=== PATIENT | female | born 1980 | race Caucasian/White ===

== ENCOUNTER 2017-06-10 09:28 | Emergency (ER) | payer MEDICAID ==
[~2017-06-10] VITALS: Ht 167.6 cm; Wt 81.6 kg
--- NOTE | 2017-06-10 09:37 | Emergency Room Report ---
History of Present Illness Time Seen by 0933 Presenting Problem in Triage Pt arrived:Walked Presenting Problem:PT ADVISES THIS MORNING AROUND 0415 SHE STARTED HAVING A STABBING PAIN IN HER CHEST WITH SOME TIGHTNESS. 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 N Clinical Suspician of Infection? N Mental Status: 1 - Regular (Normal Baseline) Sepsis Risk:Low Sepsis Risk Have you (or family members/close friends) recently traveled outside the [place]? N If Yes, where/when: Have you had exposure to infectious disease within the past month? N TB? Other? Specify: Patient opened an alejo at work today and a Riskalyze blared loudly and suddenly from it, and she became surprised and anxious, with stabbing pain to midsternal area radiating to back; no n/v, no diaphoresis, no SOB, no calf pain, occurred around four or so this morning and has since resolved; hx of anxiety and sx similar today; has occasional ankle edema for which she takes a diuretic but no new edema. No fever or cough. Only cardiac RF is that she smokes; she denies FH CAD and has no pmh of DM/HTN/hyperlipidemia/CAD. ASA administered on arrival and EKG done and reviewed on arrival to ED. ALLERGIES Coded Allergies: No Known Allergies (06/10/17) Home Medications Reported Medications No Known Home Medications History Medical History General CAD? No Angina: No [place]: No Hypertension? No Hyperlipidemia? No CHF? No DVT? No PE? No COPD? No Asthma? No Anemia? No GERD? No Gastric ulcers? No GI Bleed? No Hernia? No Thyroid Problems? No Hypothyroidism? No CVA? No Seizures? Yes Diabetes? No Renal Insuffiency? No End Stage Renal Disease? No UTI? No Stones? No BPH? No GB Disease: No Nephritic Syndrome? No Asplenia? No Hepatitis? No Sickle Cell Disease? No Arthritis? No Migraines? No Cataracts? No Glaucoma? No MRSA? No HIV? No TB? No Anxiety? Yes Depression? No Cancer? 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 Social History Smoking Hx Smoker: Current Every Day Smoker Tobacco: Yes Type Cigarettes Alcohol Alcohol: No Review of Systems All Other Systems Reviewed and Negative Cardiovascular see HPI Psychiatric/Neurological see HPI Physical Exam Vital Signs Vital Signs Date Time Temp Pulse Resp B/P Pulse O2 O2 Flow FiO2 Ox Delivery Rate 06/10 0930 98.3 85 16 98 General Appearance normal appearance, WD/WN, no apparent distress Eye Exam - bilateral eye normal exam, bilateral eye PERRL, bilateral eye EOMI Neck normal inspection, non-tender, supple, full range of motion Respiratory Status Yes: trachea midline, chest symmetrical, non tender chest. No: respiratory distress, tender on palpation, use of accessory muscles, pain on inspiration, pain on expiration. Lung Sounds bilateral: normal breath sounds, lungs clear. Cardiovascular normal exam, regular rate/rhythm, no peripheral edema, no gallop, no JVD, no murmur, no rub, normal peripheral pulses Gastrointestinal normal bowel sounds, normal exam, non tender, no organomegaly, no pulsatile mass, no guarding, rebound Extremities non-tender, normal range of motion, normal inspection, no calf tenderness, no pedal edema Strength 5 Upper Ext (L), 5 Upper Ext (R), 5 Lower Ext (L), 5 Lower Ext (R) Neurologic alert, normal exam, no motor/sensory deficits, oriented x 3 Glascow Coma Scale Glascow Coma Scale Response Value EYE response: 4 Spontaneously 4 MOTOR response: 6 OBEYS 6 VERBAL response: 5 Oriented & Converses 5 Total 15 Skin intact, normal color, warm/dry, no rash cons.w/shingles Lymphatic no adenopathy Medical Decision Making LABS/Meds/Orders Pt receiving controlled substance in ED? No Results/Orders Laboratory Tests 06/10/17 0933: Sodium 137, Potassium 3.5, Chloride 101, Carbon Dioxide 27, BUN 12, Creatinine 0.9, Estimated Creat Clear 109, Estimated GFR (MDRD) 70, Glucose 103, Calcium 9.1, Total Bilirubin 0.2, AST 16, ALT 20, Alkaline Phosphatase 110, Creatine Kinase 94, CK-MB (CK-2) Rel Index 0.5, CK and CKMB Interp < 0.5, Troponin I < 0.02, Total Protein 8.1, Albumin 4.1, Globulin 4.0 H, Albumin/Globulin Ratio 1.0 L, WBC 9.7, RBC 4.85, Hgb 15.0, Hct 44.9, MCV 92.5, RDW 12.0, Plt Count 411 , MPV 7.2 L, Gran % 64.8, Gran # 6.3, Lymphocytes % 30.2, Monocytes % 3.5, Eosinophils % 0.9, Basophils % 0.5, Lymphocytes # 2.9, Monocytes # 0.3, Eosinophils # 0.1, Basophils # 0.0, PUBS MCHC 33.3, MCH 30.8 Current Medication Orders Sig/Abram Start time Last Medication Dose Route Stop Time Status Admin Aspirin 324 MG ONCE ONE 06/10 945 DC 06/10 PO 06/1034 Sodium Chloride 10 ML PRN PRN 06/10 945 AC IV 06/11 931 Aspirin 0 .STK-MED ONE 06/10 933 DC .ROUTE Orders Procedure Date/time Status ELECTROCARDIOGRAM REQUEST 06/10 932 Active CHEST(2 VIEWS-NOT PORTABLE) 06/10 932 Active IV SALINE LOCK 06/10 932 Active VP CARDIOVASCULAR SERVICE LINE 06/10 932 Active CBC WITH AUTO DIFF 06/10 932 Complete CARDIAC ENZYMES 06/10 932 Complete CHEM 12 PROFILE 06/10 932 Complete 12 LEAD EKG-[facility] (INITIAL) 06/10 930 Active CM/EKG CM/EKG EKG rate, NSR, rhythm, no evid. of ischemic chgs, no ectopy, normal QRS, normal PA, normal EKG (NSR 80; ) XRAY/CT/US XRAY/CT/US XRAY chest XR interpretation by reviewed by me Xray Results normal/NAD, no infiltrates, normal heart size, normal lung inflation luis (nl mediastinum) Departure Departure Time of Disposition 1021 Disposition DC Home or Self Care(routine) Clinical Impression Primary Impression: Atypical chest pain Secondary Impressions: History of anxiety Condition STABLE Referrals NO REFERRAL (PCP) Patient Instructions DI for Atypical Chest Pain Additional Instructions See family doctor of choice, one week, see list provided. Discharge Counseling Counseled pt/family regarding diagnosis, test results, home care, follow up needs Prescriptions Current Visit Scripts No Known Home Medications ED Critical Care Critical Care No at 1023
--- NOTE | 2017-06-10 09:37 | Emergency Room Report ---
History of Present Illness Time Seen by 0933 Presenting Problem in Triage Pt arrived:Walked Presenting Problem:PT ADVISES THIS MORNING AROUND 0415 SHE STARTED HAVING A STABBING PAIN IN HER CHEST WITH SOME TIGHTNESS. 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 N Clinical Suspician of Infection? N Mental Status: 1 - Regular (Normal Baseline) Sepsis Risk:Low Sepsis Risk Have you (or family members/close friends) recently traveled outside the [place]? N If Yes, where/when: Have you had exposure to infectious disease within the past month? N TB? Other? Specify: Patient opened an alejo at work today and a Lydia blared loudly and suddenly from it, and she became surprised and anxious, with stabbing pain to midsternal area radiating to back; no n/v, no diaphoresis, no SOB, no calf pain, occurred around four or so this morning and has since resolved; hx of anxiety and sx similar today; has occasional ankle edema for which she takes a diuretic but no new edema. No fever or cough. Only cardiac RF is that she smokes; she denies FH CAD and has no pmh of DM/HTN/hyperlipidemia/CAD. ASA administered on arrival and EKG done and reviewed on arrival to ED. ALLERGIES Coded Allergies: No Known Allergies (06/10/17) Home Medications Reported Medications No Known Home Medications History Medical History General CAD? No Angina: No [place]: No Hypertension? No Hyperlipidemia? No CHF? No DVT? No PE? No COPD? No Asthma? No Anemia? No GERD? No Gastric ulcers? No GI Bleed? No Hernia? No Thyroid Problems? No Hypothyroidism? No CVA? No Seizures? Yes Diabetes? No Renal Insuffiency? No End Stage Renal Disease? No UTI? No Stones? No BPH? No GB Disease: No Nephritic Syndrome? No Asplenia? No Hepatitis? No Sickle Cell Disease? No Arthritis? No Migraines? No Cataracts? No Glaucoma? No MRSA? No HIV? No TB? No Anxiety? Yes Depression? No Cancer? 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 Social History Smoking Hx Smoker: Current Every Day Smoker Tobacco: Yes Type Cigarettes Alcohol Alcohol: No Review of Systems All Other Systems Reviewed and Negative Cardiovascular see HPI Psychiatric/Neurological see HPI Physical Exam Vital Signs Vital Signs Date Time Temp Pulse Resp B/P Pulse O2 O2 Flow FiO2 Ox Delivery Rate 06/10 0930 98.3 85 16 98 General Appearance normal appearance, WD/WN, no apparent distress Eye Exam - bilateral eye normal exam, bilateral eye PERRL, bilateral eye EOMI Neck normal inspection, non-tender, supple, full range of motion Respiratory Status Yes: trachea midline, chest symmetrical, non tender chest. No: respiratory distress, tender on palpation, use of accessory muscles, pain on inspiration, pain on expiration. Lung Sounds bilateral: normal breath sounds, lungs clear. Cardiovascular normal exam, regular rate/rhythm, no peripheral edema, no gallop, no JVD, no murmur, no rub, normal peripheral pulses Gastrointestinal normal bowel sounds, normal exam, non tender, no organomegaly, no pulsatile mass, no guarding, rebound Extremities non-tender, normal range of motion, normal inspection, no calf tenderness, no pedal edema Strength 5 Upper Ext (L), 5 Upper Ext (R), 5 Lower Ext (L), 5 Lower Ext (R) Neurologic alert, normal exam, no motor/sensory deficits, oriented x 3 Glascow Coma Scale Glascow Coma Scale Response Value EYE response: 4 Spontaneously 4 MOTOR response: 6 OBEYS 6 VERBAL response: 5 Oriented & Converses 5 Total 15 Skin intact, normal color, warm/dry, no rash cons.w/shingles Lymphatic no adenopathy Medical Decision Making LABS/Meds/Orders Pt receiving controlled substance in ED? No Results/Orders Laboratory Tests 06/10/17 0933: Sodium 137, Potassium 3.5, Chloride 101, Carbon Dioxide 27, BUN 12, Creatinine 0.9, Estimated Creat Clear 109, Estimated GFR (MDRD) 70, Glucose 103, Calcium 9.1, Total Bilirubin 0.2, AST 16, ALT 20, Alkaline Phosphatase 110, Creatine Kinase 94, CK-MB (CK-2) Rel Index 0.5, CK and CKMB Interp < 0.5, Troponin I < 0.02, Total Protein 8.1, Albumin 4.1, Globulin 4.0 H, Albumin/Globulin Ratio 1.0 L, WBC 9.7, RBC 4.85, Hgb 15.0, Hct 44.9, MCV 92.5, RDW 12.0, Plt Count 411 , MPV 7.2 L, Gran % 64.8, Gran # 6.3, Lymphocytes % 30.2, Monocytes % 3.5, Eosinophils % 0.9, Basophils % 0.5, Lymphocytes # 2.9, Monocytes # 0.3, Eosinophils # 0.1, Basophils # 0.0, PUBS MCHC 33.3, MCH 30.8 Current Medication Orders Sig/Abram Start time Last Medication Dose Route Stop Time Status Admin Aspirin 324 MG ONCE ONE 06/10 945 DC 06/10 PO 06/1034 Sodium Chloride 10 ML PRN PRN 06/10 945 AC IV 06/11 931 Aspirin 0 .STK-MED ONE 06/10 933 DC .ROUTE Orders Procedure Date/time Status ELECTROCARDIOGRAM REQUEST 06/10 932 Active CHEST(2 VIEWS-NOT PORTABLE) 06/10 932 Active IV SALINE LOCK 06/10 932 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 of ischemic chgs, no ectopy, normal QRS, normal [place], normal EKG (NSR 80; ) XRAY/CT/US XRAY/CT/US XRAY chest XR interpretation by reviewed by me Xray Results normal/NAD, no infiltrates, normal heart size, normal lung inflation luis (nl mediastinum) Departure Departure Time of Disposition 1021 Disposition DC Home or Self Care(routine) Clinical Impression Primary Impression: Atypical chest pain Secondary Impressions: History of anxiety Condition STABLE Referrals NO REFERRAL (PCP) Patient Instructions DI for Atypical Chest Pain Additional Instructions See family doctor of choice, one week, see list provided. Discharge Counseling Counseled pt/family regarding diagnosis, test results, home care, follow up needs Prescriptions Current Visit Scripts No Known Home Medications ED Critical Care Critical Care No at 1023
[2017-06-10 09:47] LABS: LYMPH # 2.9 K/mm3 (0.7-4.5); LYMPH % 30.2 % (10-50.0)
[2017-06-10 10:13] LABS: BUN 12 mg/dL (7-18); GFR (ESTIMATED) 70 ML/MIN (59-)
--- OUTSIDE RECORDS SUMMARY | 2017-06-10 10:15 | External Medical Summary Rpt ---
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 Role Phone [facility], Unavailable Unavailable [facility] Unavailable Unavailable PARTNERSHIP I #, [facility] I # [facility] # Unavailable Unavailable [id number], [facility] # [id number] Purpose Continuity of Care Document - 12-31-2009 through 2016 Problems Code Diagnosis DOS Provider Status F44.5 Conversion disorder with seizures or convulsions Medications Na ND Rx Da Fi Fi Am Da Di Ph RX Ph St me C No te ll ll ou ys ag ar # ys at rm s nt no ma ic us Or Da si cy ia de te s n re d WA 37 10 10 5 60 30 BE 10 BE Ac IL 00 -1 -1 .0 RI 36 AL ti OS 00 3- 3- 00 NG 41 L ve EC 45 20 20 ER 9 50 11 [address] Y C UG 20 .6 CE NT MG ER TA BL ET WA 68 10 10 2 30 8 BE 10 BE Ac OM 38 -1 -1 .0 RI 36 AL ti ET 20 3- 3- 00 NG 42 L ve FLORES 04 20 20 ER 0 ZI 11 11 [address] Y UG 25 CE MG NT ER TA BL ET TO 68 10 10 12 60 30 BE 10 BE Ac PI 46 -1 -1 .0 RI 36 AL ti RA 20 3- 3- 00 NG 42 L ve MA 15 20 20 ER 1 TE 31 [address] Y 50 UG MG CE NT TA ER BL ET DI 00 10 10 0 30 4 BE 10 BE Ac PH 37 -1 -1 .0 RI 36 AL ti EN 80 3- 3- 00 NG 42 L ve OX 41 20 20 ER 2 YL 51 11 [address] Y E- UG AT RO CE P NT 2. ER 5- 0. 02 5 CI 65 04 09 3 15 30 BE 10 GR Ac TA 16 -1 -1 .0 RI 21 OS ti LO 20 5- 6- 00 NG 36 S ve WA 05 20 20 ER 9 LA AM 41 [address] Y HB UG R 40 CE NT MG ER TA BL ET SE 00 04 09 3 30 30 BE 10 GR Ac RO 31 -1 -1 .0 RI 21 OS ti QU 00 5- 6- 00 NG 37 S ve EL 27 20 20 ER 0 LA 11 11 [address] Y 0 UG MG CE TA NT BL ER ET TO 68 04 09 3 60 30 BE 10 GR Ac PI 46 -1 -0 .0 RI 21 OS ti RA 20 5- 6- 00 NG 36 S ve MA 15 20 20 ER 8 LA TE 31 [address] Y 50 UG MG CE NT TA ER BL ET TO 68 04 05 3 60 30 BE 10 GR Ac PI 46 -1 -0 .0 RI 21 OS ti RA 20 5- 9- 00 NG 36 S ve MA 15 20 20 ER 8 LA TE 31 [address] Y 50 UG MG CE NT TA ER BL ET CI 65 04 05 3 15 30 BE 10 GR Ac TA 16 -1 -0 .0 RI 21 OS ti LO 20 5- 9- 00 NG 36 S ve WA 05 20 20 ER 9 LA AM 41 [address] Y HB UG R 40 CE NT MG ER TA BL ET SE 00 04 05 3 30 30 BE 10 GR Ac RO 31 -1 -0 .0 RI 21 OS ti QU 00 5- 9- 00 NG 37 S ve EL 27 20 20 ER 0 LA 11 11 [address] Y 0 UG MG CE TA NT BL ER ET TO 68 02 04 1 60 30 BE 10 GR Ac PI 46 -1 -0 .0 RI 14 OS ti RA 20 8- 6- 00 NG 70 S ve MA 15 20 20 ER 1 LA TE 31 [address] Y 50 UG MG CE NT TA ER BL ET CI 65 02 04 1 15 30 BE 10 GR Ac TA 16 -1 -0 .0 RI 14 OS ti LO 20 8- 6- 00 NG 70 S ve WA 05 20 20 ER 2 LA AM 41 [address] Y HB UG R 40 CE NT MG ER TA BL ET SE 00 02 04 1 30 30 BE 10 GR Ac RO 31 -1 -0 .0 RI 14 OS ti QU 00 8- 6- 00 NG 70 S ve EL 27 20 20 ER 3 LA 11 11 [address] Y 0 UG MG CE TA NT BL ER ET SE 00 02 03 1 30 30 BE 10 GR Ac RO 31 -1 -0 .0 RI 14 OS ti QU 00 8- 4- 00 NG 70 S ve EL 27 20 20 ER 3 LA 11 11 [address] Y 0 UG MG CE TA NT BL ER ET CI 65 02 03 1 15 30 BE 10 GR Ac TA 16 -1 -0 .0 RI 14 OS ti LO 20 8- 4- 00 NG 70 S ve WA 05 20 20 ER 2 LA AM 41 [address] Y HB UG R 40 CE NT MG ER TA BL ET TO 68 02 03 1 60 30 BE 10 GR Ac PI 46 -1 -0 .0 RI 14 OS ti RA 20 8- 4- 00 NG 70 S ve MA 15 20 20 ER 1 LA TE 31 [address] Y 50 UG MG CE NT TA ER BL ET TO 68 09 01 5 12 30 BE 99 BE Ac PI 46 -1 -3 0. RI 66 AL ti RA 20 0- 1- 00 NG 03 L ve MA 10 20 20 0 ER TE 81 [address] Y 25 UG MG CE NT TA ER BL ET SE 00 09 01 5 30 30 BE 99 BE Ac RO 31 -1 -3 .0 RI 66 AL ti QU 00 0- 1- 00 NG 04 L ve EL 28 20 20 ER 23 10 [address] Y UG 20 0 CE MG NT ER TA BL ET CI 65 09 01 5 15 30 BE 99 BE Ac TA 16 -1 -3 .0 RI 66 AL ti LO 20 0- 1- 00 NG 05 L ve WA 05 20 20 ER AM [address] Y HB UG R 40 CE NT MG ER TA BL ET TO 68 09 01 5 12 30 BE 99 BE Ac PI 46 -1 -0 0. RI 66 AL ti RA 20 0- 3- 00 NG 03 L ve MA 10 20 20 0 ER TE 81 [address] Y 25 UG MG CE NT TA ER BL ET SE 00 09 01 5 30 30 BE 99 BE Ac RO 31 -1 -0 .0 RI 66 AL ti QU 00 0- 3- 00 NG 04 L ve EL 28 20 20 ER 23 10 [address] Y UG 20 0 CE MG NT ER TA BL ET CI 65 09 01 5 15 30 BE 99 BE Ac TA 16 -1 -0 .0 RI 66 AL ti LO 20 0- 3- 00 NG 05 L ve WA 05 20 20 ER AM [address] Y HB UG R 40 CE NT MG ER TA BL ET TO 68 09 12 5 12 30 BE 99 BE Ac PI 46 -1 -0 0. RI 66 AL ti RA 20 0- 6- 00 NG 03 L ve MA 10 20 20 0 ER TE 81 [address] Y 25 UG MG CE NT TA ER BL ET SE 00 09 12 5 30 30 BE 99 BE Ac RO 31 -1 -0 .0 RI 66 AL ti QU 00 0- 6- 00 NG 04 L ve EL 28 20 20 ER 23 10 [address] Y UG 20 0 CE MG NT ER TA BL ET CI 65 09 12 5 15 30 BE 99 BE Ac TA 16 -1 -0 .0 RI 66 AL ti LO 20 0- 6- 00 NG 05 L ve WA 05 20 20 ER AM [address] Y HB UG R 40 CE NT MG ER TA BL ET TO 68 09 11 5 12 30 BE 99 BE Ac PI 46 -1 -0 0. RI 66 AL ti RA 20 0- 8- 00 NG 03 L ve MA 10 20 20 0 ER TE 81 [address] Y 25 UG MG CE NT TA ER BL ET SE 00 09 11 5 30 30 BE 99 BE Ac RO 31 -1 -0 .0 RI 66 AL ti QU 00 0- 8- 00 NG 04 L ve EL 28 20 20 ER 23 10 [address] Y UG 20 0 CE MG NT ER TA BL ET CI 65 09 11 5 15 30 BE 99 BE Ac TA 16 -1 -0 .0 RI 66 AL ti LO 20 0- 8- 00 NG 05 L ve WA 05 20 20 ER AM [address] Y HB UG R 40 CE NT MG ER TA BL ET TO 68 09 10 5 12 30 BE 99 BE Ac PI 46 -1 -1 0. RI 66 AL ti RA 20 0- 1- 00 NG 03 L ve MA 10 20 20 0 ER TE 81 [address] Y 25 UG MG CE NT TA ER BL ET SE 00 09 10 5 30 30 BE 99 BE Ac RO 31 -1 -1 .0 RI 66 AL ti QU 00 0- 1- 00 NG 04 L ve EL 28 20 20 ER 23 10 [address] Y UG 20 0 CE MG NT ER TA BL ET CI 65 09 10 5 15 30 BE 99 BE Ac TA 16 -1 -1 .0 RI 66 AL ti LO 20 0- 1- 00 NG 05 L ve WA 05 20 20 ER AM [address] Y HB UG R 40 CE NT MG ER TA BL ET SE 00 09 09 5 30 30 BE 99 BE Ac RO 31 -1 -1 .0 RI 66 AL ti QU 00 0- 3- 00 NG 04 L ve EL 28 20 20 ER 23 10 [address] Y UG 20 0 CE MG NT ER TA BL ET TO 68 09 09 5 12 30 BE 99 BE Ac PI 46 -1 -1 0. RI 66 AL ti RA 20 0- 0- 00 NG 03 L ve MA 10 20 20 0 ER TE [address] Y 25 UG MG CE NT TA ER BL ET CI 65 09 09 5 15 30 BE 99 BE Ac TA 16 -1 -1 .0 RI 66 AL ti LO 20 0- 0- 00 NG 05 L ve WA 05 20 20 ER AM [address] Y HB UG R 40 CE NT MG ER TA BL ET SE 00 08 08 0 15 15 KR 66 LA Ac RO 31 -2 -2 .0 OG 71 RU ti QU 00 6- 7- 00 ER 40 E ve EL 28 20 20 8 JR 26 10 10 LI . XR 0 VA GE TE NT 20 D RY 0 PA C MG RT NE TA RS BL HI ET P I # TO 00 08 08 0 60 30 KR 66 LA Ac PI 09 -2 -2 .0 OG 71 RU ti RA 30 6- 7- 00 ER 40 E ve MA 15 20 20 9 JR TE 50 10 10 LI . 6 VA GE 25 TE NT D RY MG PA C RT TA NE BL RS ET HI P I # CI 55 08 08 0 15 15 KR 66 LA Ac TA 11 -2 -2 .0 OG 71 RU ti LO 10 6- 7- 00 ER 41 E ve WA 34 20 20 0 JR AM 30 10 10 LI . 5 VA GE HB TE NT R D RY 20 PA C RT MG NE RS TA HI BL P ET I # CL 00 07 07 1 90 30 KR 42 TA Ac ON -1 .0 OG 08 NG ti AZ 30 2- 2- 00 ER 61 VA ve EP 83 20 20 1 LD AM 20 10 10 PH 5 AR IV 0. MA 5 CY TH MG # OR TA 14 BL 36 ET 4 DI 00 03 03 0 90 30 KR 42 TA Ac AZ 37 -3 -3 .0 OG 06 NG ti EP 80 0- 0- 00 ER 51 VA ve AM 34 20 20 8 LD 5 50 10 10 PH 5 AR IV MG MA CY TH TA # OR BL ET 14 36 4 DI 00 03 03 0 90 30 BE 97 TA Ac AZ 59 -0 -0 .0 RI 85 NG ti EP 15 3- 3- 00 NG 79 VA ve AM 61 20 20 ER LD [address] IV MG UG TH TA CE OR BL NT ET ER
--- OUTSIDE RECORDS SUMMARY | 2017-06-10 10:15 | External Medical Summary Rpt ---
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, Unavailable Unavailable [facility] Unavailable Unavailable PARTNERSHIP I #, [facility] I # [facility] # Unavailable Unavailable [id number], [facility] # [id number] Purpose Continuity of Care Document - 12-31-2009 [...] ia de te s n re d OK 37 10 10 5 60 30 BE 10 BE Ac IL 00 -1 -1 .0 RI 36 AL ti OS 00 3- 3- 00 NG 41 L ve EC 45 20 20 ER 9 50 11 [address] Y C UG 20 .6 CE NT MG ER TA BL ET OK 68 10 10 2 30 8 BE [...] 5- 6- 00 NG 36 S ve OK 05 20 20 ER 9 LA AM [...] 5- 9- 00 NG 36 S ve OK 05 20 20 ER 9 LA AM [...] 8- 6- 00 NG 70 S ve OK 05 20 20 ER 2 LA AM [...] 8- 4- 00 NG 70 S ve OK 05 20 20 ER 2 LA AM [...] 0- 1- 00 NG 05 L ve OK 05 20 20 ER AM 41 10 [...] 0- 3- 00 NG 05 L ve OK 05 20 20 ER AM 41 10 [...] 0- 6- 00 NG 05 L ve OK 05 20 20 ER AM 41 10 [...] 0- 8- 00 NG 05 L ve OK 05 20 20 ER AM 41 10 [...] 0- 1- 00 NG 05 L ve OK 05 20 20 ER AM 41 10 [...] 0- 0- 00 NG 05 L ve OK 05 20 20 ER AM 41 10 [...] 26 10 10 LI . XR 0 PA GE TE NT 20 D RY 0 PA C MG RT NE TA RS BL HI ET P I # TO 00 08 08 0 60 30 KR 66 LA Ac PI 09 -2 -2 .0 OG 71 RU ti RA 30 6- 7- 00 ER 40 E ve MA 15 20 20 9 JR TE 50 10 10 LI . 6 PA GE 25 TE NT D RY MG PA C RT TA NE BL RS ET HI P I # CI 55 08 08 0 15 15 KR 66 LA Ac TA 11 -2 -2 .0 OG 71 RU ti LO 10 6- 7- 00 ER 41 E ve OK 34 20 20 0 JR AM 30 10 10 LI . 5 PA GE HB TE NT R D RY [...]
--- OUTSIDE RECORDS SUMMARY | 2017-06-10 10:17 | External Medical Summary Rpt ---
Demographics Preferred Language Kazakh Marital Status Unknown Jain Affiliation Unknown Race Unknown Ethnic Group Unknown Author Author , LUKE BUTLER Address Unknown Phone [email or web address] Care Team Providers Care Matrix Repairer Name Role Phone [facility], Unavailable Unavailable [facility] Unavailable Unavailable PARTNERSHIP I #, [facility] I # [facility] # Unavailable Unavailable [id number], [facility] # [id number] Purpose Continuity of Care Document - 12-31-2009 through 2016 Medications Na ND Rx Da Fi Fi Am Da Di Ph RX Ph St me C No te ll ll ou ys ag ar # ys at rm s nt no ma ic us Or Da si cy ia de te s n re d IL 37 10 10 5 60 30 BE 10 BE Ac IL 00 -1 -1 .0 RI 36 AL ti OS 00 3- 3- 00 NG 41 L ve EC 45 20 20 ER 9 50 11 [address] Y C UG 20 .6 CE NT MG ER TA BL ET IL 68 10 10 2 30 8 BE [...] 5- 6- 00 NG 36 S ve IL 05 20 20 ER 9 LA AM [...] 5- 9- 00 NG 36 S ve IL 05 20 20 ER 9 LA AM [...] 8- 6- 00 NG 70 S ve IL 05 20 20 ER 2 LA AM [...] NT BL ER ET TO 68 02 03 1 60 30 BE 10 GR Ac PI 46 -1 -0 .0 RI 14 OS ti RA 20 8- 4- 00 NG 70 S ve MA 15 20 20 ER 1 LA TE 31 [address] Y 50 UG MG CE NT TA ER BL ET CI 65 02 03 1 15 30 BE 10 GR Ac TA 16 -1 -0 .0 RI 14 OS ti LO 20 8- 4- 00 NG 70 S ve IL 05 20 20 ER 2 LA AM 41 [address] Y HB UG R 40 CE NT MG ER TA BL ET SE 00 02 03 1 30 30 BE 10 GR Ac RO 31 -1 -0 .0 RI 14 OS ti QU 00 8- 4- 00 NG 70 S ve EL 27 20 20 ER 3 LA 11 11 [address] Y 0 UG MG CE TA NT BL ER ET TO 68 09 01 5 12 [...] 0- 1- 00 NG 05 L ve IL 05 20 20 ER AM 41 10 [...] 0- 3- 00 NG 05 L ve IL 05 20 20 ER AM 41 10 [...] 0- 6- 00 NG 05 L ve IL 05 20 20 ER AM 41 10 [...] 0- 8- 00 NG 05 L ve IL 05 20 20 ER AM 41 10 [...] 0- 1- 00 NG 05 L ve IL 05 20 20 ER AM 41 10 [...] 0- 0- 00 NG 05 L ve IL 05 20 20 ER AM 41 10 [...] 26 10 10 LI . XR 0 [place] GE TE NT 20 D RY 0 PA C MG RT NE TA RS BL HI ET P I # TO 00 08 08 0 60 30 KR 66 LA Ac PI 09 -2 -2 .0 OG 71 RU ti RA 30 6- 7- 00 ER 40 E ve MA 15 20 20 9 JR TE 50 10 10 LI . 6 [place] GE 25 TE NT D RY MG PA C RT TA NE BL RS ET HI P I # CI 55 08 08 0 15 15 KR 66 LA Ac TA 11 -2 -2 .0 OG 71 RU ti LO 10 6- 7- 00 ER 41 E ve IL 34 20 20 0 JR AM 30 10 10 LI . 5 [place] GE HB TE NT R D RY 20 PA C RT MG NE RS TA HI BL P ET I # CL 00 07 07 1 90 30 KR 42 TA Ac ON 09 -1 -1 .0 OG 08 NG ti AZ [...]
--- OUTSIDE RECORDS SUMMARY | 2017-06-10 10:17 | External Medical Summary Rpt ---
Demographics Preferred Language Romansh Marital Status Unknown Jainism Affiliation Unknown Race Unknown Ethnic Group Unknown Author Author LUKE Address Unknown Phone Immunization No patient found.
--- OUTSIDE RECORDS SUMMARY | 2017-06-10 10:17 | External Medical Summary Rpt ---
Demographics Preferred Language Wolof Marital Status Unknown Anabaptism Affiliation Unknown Race Unknown Ethnic Group Unknown Author Author [facility] Address Unknown Phone Immunization No patient found.
--- OUTSIDE RECORDS SUMMARY | 2017-06-10 10:17 | External Medical Summary Rpt ---
Author Author LUKE Tejada, LUKE Tejada Organization [employer] Address Unknown Phone Unavailable
--- OUTSIDE RECORDS SUMMARY | 2017-06-10 10:17 | External Medical Summary Rpt ---
Demographics Preferred Language Yakut Marital Status Unknown Uatsdin Affiliation Unknown Race Unknown Ethnic Group Unknown Author Author , LUKE BUTLER Address Unknown Phone [email or web address] Team Providers Care Biomedical Equipment Specialist Name Role Phone [facility], Unavailable Unavailable [facility] Unavailable Unavailable PARTNERSHIP I #, [facility] # [facility] # Unavailable Unavailable [id number], [facility] # [id number] Purpose Continuity of Care Document - 12-31-2009 [...] 26 10 10 LI . XR 0 WA GE TE NT 20 D RY 0 PA C MG RT NE TA RS BL HI ET P I # TO 00 08 08 0 60 30 KR 66 LA Ac PI 09 -2 -2 .0 OG 71 RU ti RA 30 6- 7- 00 ER 40 E ve MA 15 20 20 9 JR TE 50 10 10 LI . 6 WA GE 25 TE NT D RY MG PA C RT TA NE BL RS ET HI P I # CI 55 08 08 0 15 15 KR 66 LA Ac TA 11 -2 -2 .0 OG 71 RU ti LO 10 6- 7- 00 ER 41 E ve WA 34 20 20 0 JR AM 30 10 10 LI . 5 WA GE HB TE NT R D RY [...]
[2017-06-10 10:39] VITALS: BP 136/84
--- NOTE | 2017-06-10 10:53 | RADIOLOGY REPORT PS360 ---
CHEST(2 VIEWS-NOT PORTABLE) HISTORY: Chest pain CP ORDERING PHYSICIAN: Varsha Bazan MD PATIENT AGE: 36 years COMPARISON: None available FINDINGS: The cardiomediastinal silhouette and pulmonary vascularity are within normal limits. The lungs are clear without infiltrates, suspicious nodules, or pleural effusions. No acute bony abnormalities. IMPRESSION: Negative chest, no acute finding
[2017-06-13] MEDS ORDERED: NOMEDS XX (07:04)
[2017-06-13] MEDS ORDERED: HYDROXYZINE HYD50 M1 PO (08:09)
== END 2017-06-10 10:40 | disposition home or self-care (01) ==
LOC: ER 09:28
PROVIDERS: Emergency Medicine
DX: R07.89 Other chest pain (principal); F41.9 Anxiety disorder, unspecified; Z72.0 Tobacco use